=== PATIENT | female | born 1930 | race Caucasian/White ===

== ENCOUNTER 2018-05-18 04:55 | Emergency (ER) | payer OTHER ==
[2018-05-18 05:09] VITALS: Ht 160 cm
[2018-05-18 06:25] LABS: CALCIUM 11.2 mg/dL (8.5-10.1); CARBON DIOXIDE 34.8 mmol/L (21-32); CHLORIDE SERUM 107 mmol/L (98-107); CREATININE SERUM 0.9 mg/dL (0.6-1.0); GLUCOSE SERUM 111 mg/dL (74-106); POTASSIUM SERUM 3.3 mmol/L (3.5-5.1); SODIUM SERUM 143 mmol/L (136-145)
[2018-05-18 06:29] LABS: ALKALINE PHOSPHATASE 49 U/L (46-116); ALT/SGPT 17 U/L (14-59); AST/SGOT 17 U/L (15-37); BILIRUBIN TOTAL 0.7 mg/dL (0.20-1.00); TOTAL PROTEIN, SERUM 6.2 g/dL (6.4-8.2)
[2018-05-18 06:32] LABS: ALBUMIN 3.2 g/dL (3.4-5.0)
[2018-05-18 07:37] LABS: BASOPHIL % 0.4 % (0-2); RED CELL DISTRIBUTION WIDTH 13.5 % (11.5-14.5)
[2018-05-18 07:41] LABS: PLATELET COUNT 109 x10^3mcL (130-400)
[2018-05-18 08:21] LABS: microscopic required? YES; urine erythrocyte NEGATIVE (NEGATIVE)
[2018-05-18 10:44] VITALS: BP 119/32
== END 2018-05-18 10:44 | disposition home or self-care (01) ==
LOC: ED 04:55
PROVIDERS: Emergency Medicine
DX: S09.90XA Unspecified injury of head, initial encounter (principal); N39.0 Urinary tract infection, site not specified; M54.2 Cervicalgia; W19.XXXA Unspecified fall, initial encounter; Y93.89 Activity, other specified; Y92.89 Other specified places as the place of occurrence of the external cause; Y99.8 Other external cause status
CPT/HCPCS: 36415; J0696

== ENCOUNTER 2019-01-25 09:17 | Inpatient (IN) | payer OTHER ==
[~2019-01-25] VITALS: Ht 162.6 cm; Wt 52.8 kg
[2019-01-25 09:25] VITALS: Ht 162.6 cm; Wt 52.8 kg
[2019-01-25] MEDS ORDERED: ASPIR 8181 MG PO (10:19)
[2019-01-25] MEDS ORDERED: PRILOSEC OTC20 M1 PO (10:19)
[2019-01-25] MEDS ORDERED: ALENDRONATE SOD70 M2 PO (10:20)
[2019-01-25] MEDS ORDERED: THE MEDICINE S400 I1 (10:20)
[2019-01-25] MEDS ORDERED: FISH OIL1000 MG (10:20)
[2019-01-25 10:24] LABS: BASOPHIL % 0.4 % (0-2); PLATELET COUNT 131 x10^3mcL (130-400); RED CELL DISTRIBUTION WIDTH 13.9 % (11.5-14.5)
[2019-01-25 10:38] LABS: ALBUMIN 3.9 g/dL (3.4-5.0); ALKALINE PHOSPHATASE 65 U/L (46-116); ALT/SGPT 21 U/L (14-59); AMYLASE 51 U/L (25-115); AST/SGOT 15 U/L (15-37); BILIRUBIN TOTAL 0.99 mg/dL (0.20-1.00); CARBON DIOXIDE 34.1 mmol/L (21-32); CHLORIDE SERUM 103 mmol/L (98-107); CHOLESTEROL 137 mg/dL (<200); CREATININE SERUM 1.6 mg/dL (0.6-1.0); GLUCOSE SERUM 112 mg/dL (74-106); HDL CHOLESTEROL 54 mg/dL (40-60); LIPASE 105 IU/L (73-393); POTASSIUM SERUM 3.4 mmol/L (3.5-5.1); SODIUM SERUM 144 mmol/L (136-145); T4(THYROXINE) 10.4 ug/dL (4.7-13.3); TOTAL PROTEIN, SERUM 7.6 g/dL (6.4-8.2)
[2019-01-25 11:07] LABS: CALCIUM 13.1 mg/dL (8.5-10.1)
[2019-01-25 12:42] LABS: UA SPECIFIC GRAVITY 1.015 (1.005-1.035); microscopic required? YES; urine erythrocyte NEGATIVE (NEGATIVE)
[2019-01-25 15:45] VITALS: BP 160/64
[2019-01-25 17:01] VITALS: BP 130/68; BP 179/91
[2019-01-25 21:11] VITALS: BP 123/58
[2019-01-26 05:22] VITALS: BP 129/88
[2019-01-26 07:40] LABS: CARBON DIOXIDE 34.2 mmol/L (21-32); CHLORIDE SERUM 113 mmol/L (98-107); CREATININE SERUM 1.3 mg/dL (0.6-1.0); GLUCOSE SERUM 90 mg/dL (74-106); SODIUM SERUM 151 mmol/L (136-145)
[2019-01-26 07:46] LABS: PHOSPHOROUS 2.3 mg/dL (2.5-4.9)
[2019-01-26 08:08] LABS: POTASSIUM SERUM 2.7 mmol/L (3.5-5.1)
[2019-01-26 09:34] VITALS: BP 103/45
[2019-01-26] MEDS ORDERED: PANTOPRAZOLE SO40 M1 PO (12:22)
[2019-01-26 13:15] VITALS: BP 103/45
[2019-01-27 09:05] LABS: CALCIUM 10.1 mg/dL (8.7-10.3)
[2019-01-28 09:05] LABS: VITAMIN D 1,25 DIHYDROXY 8.6 pg/mL (19.9-79.3)
== END 2019-01-26 18:50 | disposition home or self-care (01) | DRG 381 ==
LOC: ED 09:17 → DU 14:12
PROVIDERS: Emergency Medicine; Internal Medicine; ADMIT Internal Medicine
PROC: 0DB68ZX Excision of Stomach, Via Natural or Artificial Opening Endoscopic, Diagnostic (ICD-10-PCS; 2019-01-26)
PROC: 0DB58ZX Excision of Esophagus, Via Natural or Artificial Opening Endoscopic, Diagnostic (ICD-10-PCS; principal; 2019-01-26 07:30)
DX: K22.70 Barrett's esophagus without dysplasia (principal); N17.9 Acute kidney failure, unspecified; E87.1 Hypo-osmolality and hyponatremia; N39.0 Urinary tract infection, site not specified; Z68.1 Body mass index [BMI] 19.9 or less, adult; K29.50 Unspecified chronic gastritis without bleeding; K21.0 Gastro-esophageal reflux disease with esophagitis; E83.52 Hypercalcemia; E87.6 Hypokalemia
CPT/HCPCS: 43235; 82652; 83880; 97110-GP; 97530-GP; J0696; J1200; J1610; J2250; J2310; J2405; J2430; J2765; J3010; J3480; J3490; J7030; Q0092

== ENCOUNTER 2020-03-05 10:31 | Emergency (ER) | payer OTHER ==
[~2020-03-05] VITALS: Ht 162.6 cm; Wt 49.0 kg
[~2020-03-05 10:31] MED LIST: ALENDRONATE SOD70 M2 PO; ASPIR 8181 MG PO; FISH OIL1000 MG; PANTOPRAZOLE SO40 M1 PO; PRILOSEC OTC20 M1 PO; THE MEDICINE S400 I1
[2020-03-05 10:43] VITALS: Ht 162.6 cm; Wt 49.0 kg
[2020-03-05 11:55] LABS: CALCIUM 10.8 mg/dL (8.5-10.1); CARBON DIOXIDE 31.4 mmol/L (21-32); CHLORIDE SERUM 107 mmol/L (98-107); CREATININE SERUM 1.1 mg/dL (0.6-1.0); GLUCOSE SERUM 96 mg/dL (74-106); POTASSIUM SERUM 3.5 mmol/L (3.5-5.1); SODIUM SERUM 143 mmol/L (136-145)
[2020-03-05 12:00] LABS: ALBUMIN 3.4 g/dL (3.4-5.0); ALKALINE PHOSPHATASE 44 U/L (46-116); ALT/SGPT 13 U/L (14-59); AST/SGOT 17 U/L (15-37); BILIRUBIN TOTAL 0.5 mg/dL (0.20-1.00); LIPASE 106 IU/L (73-393); TOTAL PROTEIN, SERUM 6.8 g/dL (6.4-8.2)
[2020-03-05 13:05] LABS: PLATELET COUNT 131 x10^3mcL (130-400)
[2020-03-05 14:10] LABS: MONOCYTE 10 % (0-7); SEGMENTED NEUTROPHILS 50 % (37-75); rbc morphology (normal/abnorm) NORMAL (NORMAL)
[2020-03-05 14:45] VITALS: BP 141/63
== END 2020-03-05 14:45 | disposition home or self-care (01) ==
LOC: ED 10:31
PROVIDERS: Emergency Medicine
DX: K59.00 Constipation, unspecified (principal); N30.00 Acute cystitis without hematuria; E83.52 Hypercalcemia
CPT/HCPCS: J0696; J7030; J7060

== ENCOUNTER 2020-10-09 18:54 | Observation (INO) | payer OTHER ==
[~2020-10-09] VITALS: Ht 152.4 cm; Wt 47.7 kg
[2020-10-09 19:09] VITALS: Ht 152.4 cm; Wt 47.7 kg
--- NOTE | 2020-10-09 19:15 | NUR ---
TO ED BED 5 FOR BEDSIDE TRIAGE WITH TAMEKA PIERCE.
--- NOTE | 2020-10-09 19:17 | NUR ---
PATIENT SEEN WITH COMPLAINT OF ABDOMINAL PAIN, REPORTS CONSTIPATION. REPORTS LAST BOWEL MOVEMENT WAS 2 DAYS AGO.
--- NOTE | 2020-10-09 19:18 | NUR ---
PATIENT EXPRESS "LOT OF PAIN" WHEN ASKED, SEEN SPLINTING MID/UPPER ABDOMEN WITH ARMS. PATIENT IS ON OMEPRAZOLE FOR ACID PROBLEM. WAITING FOR MD EVALUATION.
--- NOTE | 2020-10-09 19:48 | NUR ---
PATIENT SEE BY . XRAY ORDERED.
--- NOTE | 2020-10-09 20:06 | NUR ---
PELVIC EXAM WAS DONE BY DR DEXTER.
--- NOTE | 2020-10-09 20:22 | NUR ---
ATTEMPT TO DO A CATH US WA UNSUCCESSFUL. PATIENT WENT TO HAVE A CT SCAN DONE..
--- NOTE | 2020-10-09 21:09 | NUR ---
WIND TURBINE ELECTRICAL ENGINEER AT THE BEDSIDE BLOOD DRAWN.
[2020-10-09 21:10] LABS: BASOPHIL % 1.3 % (0.2-1.3); PLATELET COUNT 140 x10^3mcL (179-408); RED CELL DISTRIBUTION WIDTH 14.1 % (12.3-17.7)
[2020-10-09 21:23] LABS: CALCIUM 9.6 mg/dL (8.5-10.1); CARBON DIOXIDE 28.8 mmol/L (21-32); CHLORIDE SERUM 107 mmol/L (98-107); CREATININE SERUM 0.9 mg/dL (0.6-1.0); GLUCOSE SERUM 91 mg/dL (74-106); POTASSIUM SERUM 3.9 mmol/L (3.5-5.1); SODIUM SERUM 140 mmol/L (136-145)
[2020-10-09 21:28] LABS: ALBUMIN 3.7 g/dL (3.4-5.0); ALKALINE PHOSPHATASE 67 U/L (46-116); ALT/SGPT 20 U/L (14-59); AST/SGOT 15 U/L (15-37); BILIRUBIN TOTAL 0.6 mg/dL (0.20-1.00); LIPASE 120 IU/L (73-393); TOTAL PROTEIN, SERUM 6.8 g/dL (6.4-8.2)
--- NOTE | 2020-10-09 21:34 | NUR ---
PATIENT VOID URINE DIP WAS DONE.
--- NOTE | 2020-10-09 23:26 | NUR ---
SALINE LOCK INSERTE IN THE LEFT AC. LINE BECAME SWOLLEN WITH ATTEMPT TO INFUSE FLUID.
--- NOTE | 2020-10-09 23:28 | NUR ---
PATIENT WAS MEDICATED WITH PEPCID AND ZOFRAN. VOMITED X 1 SMALL AMOUNT OF COFFEE GROUND.
--- NOTE | 2020-10-09 23:29 | NUR ---
NASAL SWAB COLLECTED FOR DAVID.
--- NOTE | 2020-10-10 00:13 | NUR ---
SALINE LOCK INSERTED ON THE RIGHT WRIST SIZE 24 POST 6 ATTEMPTS. NS INFUSING ORDERED, RATE IS NOW 80 ML /HR PER ADMIT ORDER.
--- NOTE | 2020-10-10 01:28 | NUR ---
REPORT WAS GIVEN TO ADOLFO. PATIENT WILL BE TRANSPORTED TO ROOM 240 A. PATIENT IS SLEEPING AT THIS TIME.
[2020-10-10 03:14] VITALS: BP 128/65
--- NOTE | 2020-10-10 03:45 | NUR ---
AT APROX 0205 PT. WAS BROUGHT TO THE RUST FROM ER VIA WHEEL CHAIR, ACCOMPANIED BY ER NURSE AND TECH. PT. IS A&OX3, MINTO STATES THAT SHE USES HEARING AID, BUT DID NOT BRING IT W/ HER; ALSO, WEARS GLASSES BUT DID NOT BROUGHT IT NEITHER, M/S PT, S1 AND S2 PRESENT, DENIES CHEST PAIN/ PRESSURE, PULSES PALPABLE BUE/BLE, NO EDEMA NOTED, RR EVEN AND UNLABORED ON RA, CHEST RISE SYMT, CLEAR LUNG SOUNDS BILATERAL, RW IV INTACT AND WNL RUNNING AT 80ML NS PER EMAR, SACRAL WOUND JIL PICTURE AT PT. CHART, WALKER AT BEDSIDE, BED IN LOWEST POSITON, CALL LIGHT WITHIN REACH, SR UPX2, WILL CONT TO MONITOR.
[2020-10-10 05:57] VITALS: BP 113/74
--- NOTE | 2020-10-10 06:27 | NUR ---
PT. RESTING IN BED W/ EYES CLOSED, NO ACUTE CHANGE/ DISTRESS NOTED, RR EVEN AND UNLABORED ON RA, CHEST RISE SYMT, WALKER AT BEDSIDE, ALL SAFETY MEASURES IN PLACE, WILL ENDORSE TO DAY SHIFT NURSE.
--- NOTE | 2020-10-10 07:10 | NUR ---
RECEIVED PATIENT FROM CHEESE MAKER RN. PATIENT A/OX3 CALM AND COOPERATIVE. STEBBINS. NO C/O PAIN OR SOB NOTED. ON RA. BREATHING REG AND UNLABORED. MED SURG PATIENT. IV TO R WRIST 24G C/D/I AND INFUSING NS AT 80ML/HR. COMFORT AND SAFETY MEASURES IN PLACE. CALL LIGHT WITHIN REACH. WILL CONTINUE WITH PLAN OF CARE.
[2020-10-10 07:56] VITALS: BP 131/56
[2020-10-10 12:23] VITALS: BP 111/49
--- NOTE | 2020-10-10 18:20 | NUR ---
PATIENT A/OX3 CALM AND COOPERATIVE. PLATINUM. ON RA. NO C/O PAIN OR SOB NOTED. MED SURG PATIENT. DENIES ANY CHEST PAIN. IV TO R WRIST 24G INFUSING IVF AT 80 ML/HR. COMFORT AND SAFETY MEASURES IN PLACE. CALL LIGHT WITHIN REACH. WILL ENDORSE TO STUCCO MASON RN.
[2020-10-10 18:25] LABS: CALCIUM 9.6 mg/dL (8.5-10.1); CARBON DIOXIDE 22.7 mmol/L (21-32); CHLORIDE SERUM 111 mmol/L (98-107); CREATININE SERUM 0.8 mg/dL (0.6-1.0); GLUCOSE SERUM 87 mg/dL (74-106); POTASSIUM SERUM 3.8 mmol/L (3.5-5.1); SODIUM SERUM 144 mmol/L (136-145)
--- NOTE | 2020-10-10 19:48 | NUR ---
RECIEVED PT FROM DAY SHIFT RN. PT IS [place] AND DOES NOT HAVE METAL FURNITURE ASSEMBLY SUPERVISOR TO CHARGE HEARING AIDS. PT SAID DAUGHTER SHOULD BE DROPPING OFF THE METAL FURNITURE ASSEMBLY SUPERVISOR AT THE LOBBY. HAVE TO WRITE OUT EVERYTHING ON PAPER SO SHE IS ABLE TO READ AND RESPOND. PT IS A&O X3. PT IS MED-SURG. PT HAD COMPLAINTS OF NAUSEA AND BURNING SENSATION IN HER STOMACH. PTS STOMACH IS NON DISTENDED, A LITTLE TENDER TO TOUCH. PT STATED SHE WAS UNABLE TO FINISH DINNER. WILL PROVIDE PT WITH PRN DOSE OF ZOFRAN. PT IS ALSO CONSTIPATED AND HAS COLACE 100MG AND LACTULOSE 15ML ORDERED. PT IS ON ROOM AIR WITH O2SAT 98%. NO ACUTE DISTRESS NOTED AT THIS TIME. PT HAS RIGHT WRIST IV 24G INFUSING 80ML/HR. IV IS INFUSING WELL. PT HAS A SMALL SACRAL SKIN TEAR. ALL OTHER SKIN IS INTACT. ALL SAFETY MEASURES IN PLACE. BED IN LOWEST POSITION. CALL LIGHT WITHIN REACH. WILL CONTINUE TO MONITOR.
[2020-10-10 19:55] VITALS: BP 106/44
--- NOTE | 2020-10-11 00:12 | NUR ---
PROVIDED PT WITH PRN ZOFRAN FOR NAUSEA. ALSO PROVIDED PT WITH CRACKERS AND JELLO TO START OFF SLOWLY SINCE SHE WAS EXPERIENCING NAUSEA AND UNABLE TO FINISH DINNER. PTS NAUSEA AND STOMACH PAIN SUSIDED AND PATIENT WAS ABLE TO TOLERATE THE CRACKERS AND JELLO. SPOKE TO PTS DAUGHTER AND WAS ABLE TO HAVE HER DROP OFF THE SEARCH ENGINE OPTIMIZATION ANALYST FOR THE HEARING AIDS SINCE PATIENT IS VERY HARD OF HEARING AND IT IS HARD TO COMMUNICATE WITH PT. HEARING AIDS ARE CURRENTLY CHARGING. WILL CONTINUE TO MONITOR.
--- NOTE | 2020-10-11 04:34 | NUR ---
PT SLEPT THROUGH THE NIGHT WITHOUT ANY COMPLAINTS. PTS DAUGHTER WAS ABLE TO BRING KEG WASHER FOR HEARING AIDS LAST NIGHT. HEARING AIDS HAVE BEEM CHARGING ALL OF THE NIGHT. NO ACUTE DISTRESS NOTED AT THIS TIME. PT STILL HAS NOT HAD A BOWEL MOVEMENT. ALL QUESTIONS AND CONCERNS HAVE BEEN ADDRESSED. WILL ENDORSE PT CARE TO DAY SHIFT RN. PTS BED IN LOWEST POSITION. CALL LIGHT WITHIN REACH.
[2020-10-11 05:46] VITALS: BP 121/47
[2020-10-11 06:54] LABS: RED CELL DISTRIBUTION WIDTH 14.1 % (12.3-17.7)
[2020-10-11 07:21] LABS: CALCIUM 8.7 mg/dL (8.5-10.1); CARBON DIOXIDE 26.9 mmol/L (21-32); CHLORIDE SERUM 108 mmol/L (98-107); CREATININE SERUM 0.7 mg/dL (0.6-1.0); GLUCOSE SERUM 85 mg/dL (74-106); POTASSIUM SERUM 3.6 mmol/L (3.5-5.1); SODIUM SERUM 143 mmol/L (136-145)
--- NOTE | 2020-10-11 07:54 | NUR ---
PT LAYING IN BED. PT IS ON RA, NO DISTRESS NOTED. PT HAS NO COMPLAINTS OR REQUESTS AT THIS TIME. BED IN LOWEST POSITION, WHEELS LOCKED, CALL LIGHT IN REACH. WILL CONTINUE TO MONITOR.
[2020-10-11 08:00] LABS: PLATELET COUNT 111 x10^3mcL (179-408)
[2020-10-11 08:30] VITALS: BP 155/77
[2020-10-11 08:39] LABS: MONOCYTE 10 % (0-7); PLATELET MORPHOLOGY PLATELETS DECREASED; SEGMENTED NEUTROPHILS 38 % (37-75); rbc morphology (normal/abnorm) NORMAL (NORMAL)
--- NOTE | 2020-10-11 09:47 | NUR ---
DR. MARLEY NOTIFIED OF WBC 2.6
--- NOTE | 2020-10-11 12:16 | NUR ---
FLEET ENEMA GIVEN. PT EDUCATED TO TRY AND HOLD IN THE ENEMA LONG POSSIBLE FOR BEST RESULTS. PT VERBALIZED UNDERSTANDING.
[2020-10-11 12:57] LABS: BASOPHIL % 1.4 % (0-2); PLATELET COUNT 106 x10^3mcL (130-400); RED CELL DISTRIBUTION WIDTH 13.9 % (11.5-14.5)
[2020-10-11 13:04] VITALS: BP 131/75
--- NOTE | 2020-10-11 13:27 | NUR ---
PT HAD A MODERATE BM AFTER FLEET ENEMA. BM WAS LIGHT BROWN, LOOSE AND MUCOUSY. PT CLEANED UP. PT LAYING IN BED STATES SHE SEELS LIKE THERE IS MORE POOP IN HER STOMACH. BED IN LOWEST POSITION, WHEELS LOCKED, CALL LIGHT IN REACH. WILL CONTINUE TO MONITOR.
[2020-10-11 17:20] VITALS: BP 142/65
--- NOTE | 2020-10-11 18:09 | NUR ---
PT LAYING IN BED. STATES SHE CANT EAT HER DINNER. PT HAS 1 MODERATE BM ON MY SHIFT S/P ENEMA. PT REMAINED FREE FROM INJURY THROUGHOUT THIS SHIFT. PT ON RA, NO DISTRESS NOTED. BED IN LOWEST POSITION, WHEELS LOCKED, CALL LIGHT IN REACH. WILL CONTINUE TO MONITOR.
--- NOTE | 2020-10-11 19:25 | NUR ---
RECEIVED PT IN BED RESTING QUIETLY. SHE IS ALERT,ORIENTED X4. NO SOB ON ROOM AIR. BOWEL SOUNDS ACTIVE. ABDOMEN IS ROUND AND SOFT. PT STATED SHE HAS MILD ABDL PAIN. PER REPORT SHE HAD BM X2 TODAY AFTER FLEETS ENEMA. W/ IVF NS AT 80 CC/HR VIA RT WRIST. CALL LIGHT W/IN REACH.
[2020-10-11 20:15] VITALS: BP 166/74
[2020-10-12 04:40] VITALS: BP 141/69
--- NOTE | 2020-10-12 05:29 | NUR ---
PT SLEPTR IN LONG INTERVALS. SHE REMAINS ALERT AND ORIENTED X4. SHE HAD NO C.O PAIN. NO BM NOTED THIS SHIFT. ALL NEEDS ATTENDED TO.
--- NOTE | 2020-10-12 06:37 | NUR ---
IV TO RT HAND INFILTRATED. IV REMOVED. STARTED NEW IV ON THE LT WRIST. PT TOLERATED PROCEDURE WELL.
[2020-10-12 07:29] LABS: BASOPHIL % 0.5 % (0.2-1.3); RED CELL DISTRIBUTION WIDTH 13.9 % (12.3-17.7)
--- NOTE | 2020-10-12 07:40 | NUR ---
PT SITTING UP IN BED EATING BREAKFAST. PT IS ON RA, NO DISTRESS NOTED. BED C/O BURNING IN STOMACH/ ACID REFLUX, PRILOSEC STARTED LAST NIGHT. BED IN LOWEST POSITION, WHEELS LOCKED, CALL LIGHT IN REACH. WILL CONTINUE TO MONITOR.
[2020-10-12 07:43] LABS: CALCIUM 8.5 mg/dL (8.5-10.1); CARBON DIOXIDE 28.7 mmol/L (21-32); CHLORIDE SERUM 107 mmol/L (98-107); CREATININE SERUM 0.6 mg/dL (0.6-1.0); GLUCOSE SERUM 83 mg/dL (74-106); POTASSIUM SERUM 3.2 mmol/L (3.5-5.1); SODIUM SERUM 144 mmol/L (136-145)
[2020-10-12 07:47] LABS: PLATELET COUNT 125 x10^3mcL (179-408)
[2020-10-12 08:36] VITALS: BP 121/59
[2020-10-12 12:30] VITALS: BP 138/59
[2020-10-12 13:38] VITALS: BP 138/59
--- NOTE | 2020-10-12 13:58 | NUR ---
IV REMOVED, DISCHARGE INSTRUCTIONS AND EDUCATION GIVEN TO PT AND I WILL GO OVER DC INSTRUCTIONS AND EDUCATION WITH DAUGHTER LIZ BROWN. PT IS ALERT OX4 AND STABLE FOR DC. AWAITING TRANSPORTATION FROM DAUGHTER.
== END 2020-10-12 14:47 | disposition home or self-care (01) ==
LOC: ED 18:54 → MU 22:10
PROVIDERS: Specialist; ADMIT Internal Medicine; ATTEND Internal Medicine
DX: K59.00 Constipation, unspecified (principal); H91.93 Unspecified hearing loss, bilateral; Z20.822 Contact with and (suspected) exposure to COVID-19
CPT/HCPCS: G0378; J1650; J2405; J3490; J7030